=== PATIENT | male | born 1970 | race Caucasian/White ===

== ENCOUNTER 2017-10-09 06:17 | Day surgery (SDC) | payer OTHER ==
[2017-10-08 14:46] VITALS: BP 124/65
[2017-10-08 14:56] LABS: BASOPHILS % (AUTO) 0.6 % (0.0-5.0); EOSINOPHILS % (AUTO) 3.5 % (0.0-8.0); HEMATOCRIT 44.2 % (42-54); LYMPHOCYTES % (AUTO) 28.4 % (21.0-51.0); MEAN CORPUSCULAR HEMOGLOBIN 33.6 pg (27.0-33.0); MEAN CORPUSCULAR HGB CONC 34.6 g/dL (32.0-36.0); MONOCYTES % (AUTO) 12.4 % (3.0-13.0); NEUTROPHILS % (AUTO) 55.1 % (40.0-77.0); PLATELET COUNT (AUTO) 105 K/uL (130-400); RED BLOOD CELL COUNT(AUTO) 4.56 MIL/uL (4.50-6.20); RED CELL DISTRIBUTION WIDTH 13.1 % (11.0-15.5); WHITE BLOOD COUNT (AUTO) 5.2 K/uL (4.8-10.8)
[2017-10-08 15:07] LABS: CREATININE 0.7 mg/dL (0.5-1.5)
[2017-10-09] VITALS (17 sets, daily range): BP systolic 92–146; BP diastolic 47–80
[~2017-10-09] VITALS: Ht 176.5 cm; Wt 96.2 kg
[~2017-10-09 06:17] MED LIST: CEFAZOLIN SODIUM 1 GM VIAL IVP SCH; TYL3 PO; WATER FOR INJECTION,STERILE 20 ML VIAL IJ SCH
[2017-10-09] MEDS ORDERED: LACTATED RINGERS 1000ML 1,000 ML IV ONE (06:54)
[2017-10-09] MEDS ORDERED: METOCLOPRAMIDE 10 MG/2 ML VIAL ONE (08:20)
[2017-10-09] MEDS ORDERED: OXYTOCIN 10 USP UNITS/ML ONE (08:20)
[2017-10-09] MEDS ORDERED: LIDOCAINE HCL 2% JELLY 5 ML ONE (08:20)
[2017-10-09] MEDS ORDERED: LIDOCAINE HCL MPF 1% 5ML VIAL ONE (08:20)
[2017-10-09] MEDS ORDERED: GLYCOPYRROLATE 0.2 MG/ML 5 ML VIAL ONE (08:20)
[2017-10-09] MEDS ORDERED: ROCURONIUM BROMIDE 10MG/1ML 5ML VL ONE (08:20)
[2017-10-09] MEDS ORDERED: MIDAZOLAM HCL 1 MG/ML 2ML VIAL ONE (08:20)
[2017-10-09] MEDS ORDERED: NEOSTIGMINE METHYLSULFATE 1MG/ML IV ONE (08:20)
[2017-10-09] MEDS ORDERED: SODIUM CHLORIDE 0.9% 10 ML VIAL ONE (08:20)
[2017-10-09] MEDS ORDERED: LIDOCAINE PF 2% 5ML ABBOJECT ONE (08:20)
[2017-10-09] MEDS ORDERED: PROPOFOL 10 MG/ML 20ML VIAL IV ONE (08:21)
[2017-10-09] MEDS ORDERED: FENTANYL CITRATE PF 50 MCG/1 ML 2ML VIAL ONE (08:21)
[2017-10-09] MEDS ORDERED: MEPERIDINE-PF 25 MG/ML SYG ONE (10:39)
== END 2017-10-09 12:00 | disposition home or self-care (01) ==
LOC: DAH 06:17
PROVIDERS: ATTEND Orthopaedic Surgery
DX: S83.241A Other tear of medial meniscus, current injury, right knee, initial encounter (principal); S83.281A Other tear of lateral meniscus, current injury, right knee, initial encounter; M22.41 Chondromalacia patellae, right knee; X58.XXXA Exposure to other specified factors, initial encounter; Y93.89 Activity, other specified; Y92.89 Other specified places as the place of occurrence of the external cause; Y99.8 Other external cause status; G89.29 Other chronic pain; Z98.890 Other specified postprocedural states
CPT/HCPCS: 29880; 36415; 80048; 85025; A4606; A4649 ×2; A4930; A6223; J0690; J2001; J2175; J2250; J2590; J2704; J2710; J2765; J3010; J3490 ×3; J7120